=== PATIENT | female | born 1975 | race Caucasian/White ===

== ENCOUNTER 2020-04-15 15:11 | Emergency (ER) | payer MEDICAID, SELFPAY ==
[2020-04-15 15:35] VITALS: BP 151/101; PULSE 90; RESP 14; TEMP 36; O2SAT 96; BMI 37.9
--- NOTE | 2020-04-15 16:10 | W.ED.FEMALGU ---
HPI - Female Genitourinary General: Chief complaint: Vaginal Bleeding Stated complaint: sent by doc Time Seen by Provider: 04/15/20 16:03 History of Present Illness: HPI Narrative: Patient states that she has had vaginal bleeding for the past 7 months. She has seen her PCP for this. She called today to tell her that she was now passing clots. Her PCP told her that she has cervical cancer and needed to come to the emergency department. MD elicited complaint: vaginal bleeding Onset (ago): month(s) Severity: severe Vaginal bleeding: heavy, dark red and clots Exacerbating factors: none Relieving factors: none Treatment prior to arrival: none Review of Systems General: Reports: 10 or more systems reviewed and unremarkable except in HPI and below PFS ED PFSH: Medical History Borderline personality disorder Generalized anxiety disorder Nicotine dependence, cigarettes, uncomplicated Post-traumatic stress disorder, chronic Social History Smoking and tobacco status: current every day smoker cigarettes Smoking risk assessment/counseling performed?: Yes Tobacco counseling given: counseling >3 minutes Physical Exam Const: COMMON NORMALS: no acute distress, healthy appearing and well nourished GENERAL APPEARANCE: cooperative and well developed HENMT: COMMON NORMALS: normocephalic and atraumatic HEAD & SCALP: normal to inspection, normocephalic and atraumatic Eye: GENERAL EYE: appearance normal, both eyes and all related structures Neck/C-Spine: COMMON NORMALS: full ROM, no lymphadenopathy and no meningeal signs GENERAL: Yes normal visual inspection CERVICAL SPINE: Yes cervical ROM normal and Yes normal cervical lordosis Chest: COMMONS NORMALS: normal inspection of the chest and normal palpation of entire chest wall Resp: COMMON NORMALS: normal respiratory effort, clear to auscultation bilaterally and percussion normal AUSCULTATION: clear to auscultation bilaterally PERCUSSION: percussion normal Cardio: COMMON NORMALS: regular rate, regular rhythm, S1 normal heart sound present and S2 normal heart sound present JUGULAR VENOUS DISTENTION: no JVD PALPATION: normal PMI RATE: regular rate RHYTHM: regular rhythm HEART SOUNDS: S1 normal heart sound present and S2 normal heart sound present GI: COMMON NORMALS: Soft to palpation and No hepatosplenomegaly present INSPECTION: Yes normal to inspection PALPATION: Yes Soft to palpation and Yes No hepatosplenomegaly present PERCUSSION: normal to percussion : COMMON NORMALS: Yes no CVA tenderness BLADDER/KIDNEY EXAM: Yes no CVA tenderness Back/Pelvis: COMMON NORMALS: no CVA tenderness, thoracic and lumbar spine normal to inspection and thoraco-lumbar ROM normal Extremity: COMMON NORMALS: normal to inspection, full ROM and capillary refill normal Neuro: MENINGEAL SIGNS: Yes no meningeal signs Skin: COMMON NORMALS: no rashes or lesions noted, no wounds and turgor normal GENERAL SKIN EXAM: no rashes or lesions noted, elasticity normal and turgor normal LESIONS: no lesions RASHES: no rashes TRAUMA: no lacerations or abrasions HAIR: normal NAILS: normal Course ED course: I spoke with Dr. Mendez of gynecological oncology at [facility] in [place]. She will have her office contact the patient tomorrow and arrange for an office appointment and evaluation on Sunday. Vital Signs: Vital signs: Vital Signs Temperature 96.8 F L 04/15/20 15:35 Pulse Rate 90 04/15/20 15:35 Respiratory Rate 14 04/15/20 15:35 Blood Pressure 151/101 04/15/20 15:35 Pulse Oximetry 96 04/15/20 15:35 MDM - Female Lab Data: Labs: Lab Results 04/15/20 04/15/20 04/15/20 Range/Units 16:15 16:15 16:15 WBC 15.2 H (4.0-10.0) 10^3/ uL RBC 4.69 (4.1-5.3) 10^6/u L Hgb 14.0 (11.5-15.3) g/dL Hct 42.9 (37.0-47.0) % MCV 91.5 (81-99) fL MCH 29.9 (28.0-34.0) pg MCHC 32.6 (30.0-36.0) g/dL RDW 14.1 (12.1-15.1) % Plt Count 431 H (130-400) 10^3/c mm MPV 12.4 H (7.4-10.4) fL Neut % (Auto) 68.9 % Lymph % (Auto) 21.1 % [place] % (Auto) 8.4 % Eos % (Auto) 0.9 % Baso % (Auto) 0.3 % Neut # (Auto) 10.44 H (1.8-7.7) 10^3/u L Lymph # (Auto) 3.2 (0.8-4.8) 10^3/u L [place] # (Auto) 1.3 H (0.2-0.9) 10^3/u L Eos # (Auto) 0.1 (0.0-0.8) 10^3/u L Baso # (Auto) 0.1 (0.0-0.1) 10^3/u L Nucleated RBC % (a uto) 0 % Nucleated RBCs # 0.0 /100WBC PT 12.50 (10.5-13.3) SECO NDS INR 0.91 (0.8-1.2) APTT 31.3 (23.9-36.7) SECO NDS Sodium 135 L (136-145) mmol/L Potassium 3.9 (3.5-5.1) mmol/L Chloride 102 (98-107) mmol/L Carbon Dioxide 21 L (22-29) mmol/L Anion Gap 15.9 (5-19) BUN 11 (6-20) mg/dL Creatinine 0.8 (0.5-0.9) mg/dL GFR Calculation 78.7 L (90-130) mL/min Glucose 96 (65-115) mg/dL Calculated Osmolal ity 276 L (285-295) mOsm/k g Calcium 9.8 (8.5-10.5) mg/dL Total Bilirubin 0.2 (0.15-1.2) mg/dL AST 25 (0-32) U/L ALT 23 (0-33) U/L Alkaline Phosphata se 76 (35-105) IU/L Total Protein 7.8 (6.6-8.7) g/dL Albumin 4.6 (3.5-5.2) g/dL Globulin 3.2 (1.3-4.6) g/dL Discharge Plan Discharge Patient Disposition: Xfer Other Clinical Impression: Cervical cancer Qualifiers: Malignant neoplasm of cervix location: overlapping locations Qualified Code(s): C53.8 - Malignant neoplasm of overlapping sites of cervix uteri Condition: Stable Coding Level of Care Code ED Cleaning Validation Consultant for Chg Fwd Exam Comprehensive
[2020-04-15 17:51] LABS: Basophils # 0.1 10^3/uL (0.0-0.1); Basophils % 0.3 %; Eosinophils # 0.1 10^3/uL (0.0-0.8); Eosinophils % 0.9 %; Hematocrit 42.9 % (37.0-47.0); Lymphocytes # 3.2 10^3/uL (0.8-4.8); Lymphocytes % 21.1 %; Mean Corpuscular HGB Conc 32.6 g/dL (30.0-36.0); Mean Corpuscular Hemoglobin 29.9 pg (28.0-34.0); Mean Corpuscular Volume 91.5 fL (81-99); Mean Platelet Volume 12.4 fL (7.4-10.4); Monocytes # 1.3 10^3/uL (0.2-0.9); Monocytes % 8.4 %; Neutrophils # 10.44 10^3/uL (1.8-7.7); Neutrophils % 68.9 %; Nucleated Red Blood Cells % 0 %; Platelet Count 431 10^3/cmm (130-400); Red Blood Count 4.69 10^6/uL (4.1-5.3); Red Cell Distribution Width 14.1 % (12.1-15.1); White Blood Count 15.2 10^3/uL (4.0-10.0)
[2020-04-15 18:10] LABS: Alanine Aminotransferase 23 U/L (0-33); Albumin Level 4.6 g/dL (3.5-5.2); Alkaline Phosphatase 76 IU/L (35-105); Anion Gap 15.9 (5-19); Aspartate Amino Transferase 25 U/L (0-32); Blood Urea Nitrogen 11 mg/dL (6-20); Calcium 9.8 mg/dL (8.5-10.5); Carbon Dioxide 21 mmol/L (22-29); Chloride 102 mmol/L (98-107); Globulin 3.2 g/dL (1.3-4.6); Glomerular Filtration Rate 78.7 mL/min (90-130); Glucose 96 mg/dL (65-115); Osmolality Calculated 276 mOsm/kg (285-295); Potassium 3.9 mmol/L (3.5-5.1); Sodium 135 mmol/L (136-145); Total Bilirubin 0.2 mg/dL (0.15-1.2); Total Protein 7.8 g/dL (6.6-8.7)
[2020-04-15 18:17] LABS: INR 0.91 (0.8-1.2); Partial Thromboplastin Time 31.3 SECONDS (23.9-36.7)
[2020-04-15] MEDS: ondansetron 2 mg/ML SDV 2 mL 4 MG IVP (18:47)
[2020-04-15 19:06] VITALS: BP 154/109; PULSE 72; RESP 18; O2SAT 96
== END 2020-04-15 19:09 | disposition home or self-care (01) ==
PROVIDERS: Family Medicine; Emergency Provider Family Medicine
DX: C53.8 Malignant neoplasm of overlapping sites of cervix uteri (principal); F17.210 Nicotine dependence, cigarettes, uncomplicated
CPT/HCPCS: 12345; 80053; 85025; 85610; 85730; 96374; 96375; 99282; 99285; J2405

== ENCOUNTER → 2020-07-09 07:53 | Outpatient (BNVA) | payer MEDICAID, SELFPAY | PROVIDERS: Visit Provider Nurse Practitioner | DX: F41.1 Generalized anxiety disorder (principal); F43.12 Post-traumatic stress disorder, chronic; F60.3 Borderline personality disorder; F17.210 Nicotine dependence, cigarettes, uncomplicated | CPT/HCPCS: 99214 ==

== ENCOUNTER → 2020-10-13 09:00 | Outpatient (BNVA) | payer MEDICAID, SELFPAY | PROVIDERS: Visit Provider Nurse Practitioner | DX: F43.12 Post-traumatic stress disorder, chronic (principal); F60.3 Borderline personality disorder; F41.1 Generalized anxiety disorder; F17.210 Nicotine dependence, cigarettes, uncomplicated | CPT/HCPCS: 99213 ==

== ENCOUNTER 2020-10-25 12:07 | Outpatient (CLI) | payer MEDICAID, SELFPAY ==
--- NOTE | 2020-10-25 12:24 | CT_ITS ---
WS: [id number] CT CHEST, ABDOMEN, AND PELVIS TECHNIQUE: Contrast-enhanced CT of the chest, abdomen, and pelvis with coronal and sagittal reformatt ed images. CLINICAL INFORMATION: MALIGNANT NEOPLASM OF CERVIX,SOLITARY PULMONARY NODULE COMPARISON: CT 9 24,018 and 3 10,016 DLP: 2694.[address] scans at [facility] use at least one of these dose optimization techniques: automat ed exposure control; mA and/or kV adjustment per patient size (includes targeted exams where dose is matched to clinical indication); or iterative reconstruction. CT CHEST: Noncalcified 6 mm pulmonary nodule left lower lobe unchanged since thousand 18. Tiny noncalcified pul monary nodule right upper lobe is unchanged since thousand 16. No new suspicious pulmonary parenchyma l opacities. No acute pulmonary infiltrates. Lungs well aerated. No consolidation pleural fluid. No mediastinal or hilar lymphadenopathy. No axillary lymphadenopathy. Small esophageal hiatal hernia. CT ABDOMEN AND PELVIS: Diffuse fatty infiltration of the liver. Cholelithiasis. Hepatomegaly. Normal portal vein and splenic vein. Small esophageal hiatal hernia. Adrenal glands are normal. No normal renal parenchymal enhance ment. No hydronephrosis. Mild aortic calcification. Normal caliber abdominal aorta. Normal sigmoid colon. No evidence of high-grade small or large bowel obstruction. No periaortic lymph adenopathy. No inguinal or pelvic lymphadenopathy. Heterogeneous uterine enhancement. Grade 1 anterol isthesis L4 on L5 with chronic spondylolysis. CT/CT chest abd pel w con* IMPRESSION: 1. Stable noncalcified 6 mm pulmonary nodule left lower lobe. 2. Stable tiny noncalcified pulmonary nodule right upper lobe. 3. No mediastinal or hilar lymphadenopathy. 4. Cholelithiasis. 5. Diffuse fatty infiltration of the liver with hepatomegaly. 6. No abdominal or pelvic lymphadenopathy
[2020-10-25] MEDS: iohexol 300 mg/mL 50 mL Btl PO (13:37)
[2020-10-25] MEDS: iohexol 300 mg/mL 100 mL Btl IV (14:03)
== END 2020-10-25 12:08 | disposition home or self-care (01) ==
LOC: RADWPI 12:12
PROVIDERS: Visit Provider Nurse Practitioner Family
DX: C53.9 Malignant neoplasm of cervix uteri, unspecified (principal); Z68.41 Body mass index [BMI] 40.0-44.9, adult; R91.1 Solitary pulmonary nodule; K80.20 Calculus of gallbladder without cholecystitis without obstruction; K76.0 Fatty (change of) liver, not elsewhere classified
CPT/HCPCS: 71260; 74177; Q9967

== ENCOUNTER → 2020-12-02 10:33 | Day surgery (SDC) | payer MEDICAID, SELFPAY ==
[2020-12-02 11:48] VITALS: BP 130/108; PULSE 72; RESP 18; TEMP 36.6; O2SAT 98
== END ==
PROVIDERS: Visit Provider Nurse Practitioner Family
DX: C53.9 Malignant neoplasm of cervix uteri, unspecified (principal)
CPT/HCPCS: 96368

== ENCOUNTER → 2021-01-20 10:03 | Day surgery (SDC) | payer MEDICAID, SELFPAY ==
[2021-01-20 10:59] VITALS: BP 159/95; PULSE 68; RESP 18; TEMP 36.9; O2SAT 98; BMI 43.5
== END ==
PROVIDERS: Visit Provider Nurse Practitioner Family
DX: C53.9 Malignant neoplasm of cervix uteri, unspecified (principal)
CPT/HCPCS: 96368; 96523

== ENCOUNTER → 2021-02-02 08:34 | Outpatient (BNVA) | payer MEDICAID, SELFPAY | PROVIDERS: Visit Provider Nurse Practitioner | DX: F41.1 Generalized anxiety disorder (principal); F60.3 Borderline personality disorder; F43.12 Post-traumatic stress disorder, chronic; F17.210 Nicotine dependence, cigarettes, uncomplicated | CPT/HCPCS: 99214 ==

== ENCOUNTER → 2021-03-14 08:35 | Day surgery (SDC) | payer MEDICAID, SELFPAY ==
[2021-03-14 09:24] VITALS: BP 110/75; PULSE 77; RESP 18; TEMP 36.6; O2SAT 98
--- NOTE | 2021-03-14 09:26 | PC.NURSE ---
Could not access port, 2nd nurse tried and could not. Will have longer needles ordered and pt will come back .
== END ==
PROVIDERS: Visit Provider Nurse Practitioner Family
DX: C53.9 Malignant neoplasm of cervix uteri, unspecified (principal)
CPT/HCPCS: 96368; 96523

== ENCOUNTER → 2021-06-08 07:14 | Outpatient (BNVA) | payer MEDICAID, SELFPAY | PROVIDERS: Visit Provider Nurse Practitioner | DX: F43.12 Post-traumatic stress disorder, chronic (principal); F60.3 Borderline personality disorder; F41.1 Generalized anxiety disorder; F17.210 Nicotine dependence, cigarettes, uncomplicated | CPT/HCPCS: 99214 ==

== ENCOUNTER → 2021-08-01 10:58 | Day surgery (SDC) | payer MEDICAID, SELFPAY ==
[2021-08-01 11:07] VITALS: BP 160/105; PULSE 80; RESP 18; TEMP 36.2; O2SAT 97
[2021-08-01 11:11] VITALS: BMI 38.0
== END ==
PROVIDERS: PCP Nurse Practitioner; Visit Provider Nurse Practitioner Family
DX: C53.9 Malignant neoplasm of cervix uteri, unspecified (principal)
CPT/HCPCS: 96523

== ENCOUNTER → 2021-09-12 10:55 | Day surgery (SDC) | payer MEDICAID, SELFPAY ==
[2021-09-12 11:10] VITALS: BP 130/94; PULSE 70; RESP 18; TEMP 36.3; O2SAT 97; BMI 41.2
== END ==
PROVIDERS: PCP Nurse Practitioner; Visit Provider Nurse Practitioner Family
DX: Z45.2 Encounter for adjustment and management of vascular access device (principal)
CPT/HCPCS: 96523

== ENCOUNTER → 2021-09-20 07:38 | Outpatient (BNVA) | payer MEDICAID, SELFPAY | PROVIDERS: PCP Nurse Practitioner; Visit Provider Nurse Practitioner | DX: F43.12 Post-traumatic stress disorder, chronic (principal); F60.3 Borderline personality disorder; F41.1 Generalized anxiety disorder; F17.210 Nicotine dependence, cigarettes, uncomplicated | CPT/HCPCS: 99214 ==

== ENCOUNTER → 2022-01-03 12:17 | Day surgery (SDC) | payer MEDICAID, SELFPAY ==
[2022-01-03 12:10] VITALS: BP 132/82; PULSE 95; RESP 18; TEMP 36.3; O2SAT 96
--- NOTE | 2022-01-03 12:10 | PC.NURSE ---
Pt to GI lab for port flush. Port to left chest accessed using sterile technique. Good blood return noted. Port flushed per protocol with 20 mL NS and de-accessed. Pt tolerated well.
== END ==
PROVIDERS: PCP Nurse Practitioner; Visit Provider Nurse Practitioner Family
DX: C53.9 Malignant neoplasm of cervix uteri, unspecified (principal)
CPT/HCPCS: 96523

== ENCOUNTER → 2022-01-11 09:54 | Outpatient (BNVA) | payer MEDICAID, SELFPAY | PROVIDERS: PCP Nurse Practitioner; Visit Provider Nurse Practitioner | DX: F43.12 Post-traumatic stress disorder, chronic (principal); F60.3 Borderline personality disorder; F41.1 Generalized anxiety disorder; F17.210 Nicotine dependence, cigarettes, uncomplicated | CPT/HCPCS: 99214 ==

== ENCOUNTER 2022-02-02 20:00 | Outpatient (CLI) | payer MEDICAID, SELFPAY | END 2022-02-02 20:01 | disposition home or self-care (01) | LOC: SLEEP 02-03 07:48 | PROVIDERS: PCP Nurse Practitioner; Visit Provider Nurse Practitioner | DX: R06.83 Snoring (principal); R53.83 Other fatigue; G47.33 Obstructive sleep apnea (adult) (pediatric) | CPT/HCPCS: 95810 ==

== ENCOUNTER 2022-03-08 20:00 | Outpatient (CLI) | payer MEDICAID, SELFPAY | END 2022-03-08 20:01 | disposition home or self-care (01) | LOC: SLEEP 03-09 07:36 | PROVIDERS: PCP Nurse Practitioner; Visit Provider Nurse Practitioner | DX: G47.33 Obstructive sleep apnea (adult) (pediatric) (principal) | CPT/HCPCS: 95811 ==

== ENCOUNTER → 2022-03-10 10:54 | Day surgery (SDC) | payer MEDICAID, SELFPAY ==
[2022-03-10 11:09] VITALS: BP 129/90; PULSE 78; RESP 18; TEMP 36.6; O2SAT 93
== END ==
PROVIDERS: PCP Nurse Practitioner; Visit Provider Nurse Practitioner Family
DX: C53.9 Malignant neoplasm of cervix uteri, unspecified (principal)
CPT/HCPCS: 96523

== ENCOUNTER → 2022-04-14 10:51 | Day surgery (SDC) | payer MEDICAID, SELFPAY ==
[2022-04-14 11:00] VITALS: BP 117/86; PULSE 87; RESP 18; TEMP 36.2; O2SAT 96
== END ==
PROVIDERS: PCP Nurse Practitioner; Visit Provider Nurse Practitioner Family
DX: G47.33 Obstructive sleep apnea (adult) (pediatric) (principal)
CPT/HCPCS: 96523

== ENCOUNTER 2022-06-20 12:38 | Outpatient (CLI) | payer OTHER, SELFPAY ==
--- NOTE | 2022-06-20 13:25 | PFTS_ITS ---
Date of Study:06/20/22 Date of Dictation: MECHANICS: Forced vital capacity (FVC) is normal. Forced expiratory volume in one second (FEV1) is normal. FEV1/FVC is normal. FLOW VOLUME LOOP: Normal. LUNG VOLUMES: Not measured DIFFUSING CAPACITY FOR CARBON MONOXIDE: Mildly reduced. INTERPRETATION: The prebronchodilator spirometry is normal. Lung volumes are not measured. Gas exchange (DLCO) is mildly reduced. MTDD
== END 2022-06-20 12:39 | disposition home or self-care (01) ==
LOC: RT 12:39
PROVIDERS: PCP Nurse Practitioner; Visit Provider Family Medicine
DX: J44.9 Chronic obstructive pulmonary disease, unspecified (principal)
CPT/HCPCS: 94010; 94729

== ENCOUNTER 2023-04-16 20:56 | Emergency (ER) | payer MEDICAID, SELFPAY ==
[2023-04-16 21:06] VITALS: BP 154/110; PULSE 100; RESP 22; TEMP 36.7; O2SAT 97; BMI 42.8
--- NOTE | 2023-04-16 21:18 | CTR_ITS ---
PROCEDURE INFORMATION: Exam: CT Abdomen And Pelvis With Contrast Exam date and time: 04/16/2023 10:36 PM Age: 47 years old Clinical indication: Abdominal pain; Generalized; Prior surgery; Surgery date: 6+ months; Surgery type: Tubal; Additional info: Abd pain TECHNIQUE: Imaging protocol: Computed tomography of the abdomen and pelvis with contrast. Radiation optimization: All CT scans at this facility use at least one of these dose optimization techniques: automated exposure control; mA and/or kV adjustment per patient size (includes targeted exams where dose is matched to clinical indication); or iterative reconstruction. Contrast material: OMNI 350; Contrast volume: 100 ml; Contrast route: INTRAVENOUS (IV); REPORTING DATA: Count of CT and Cardiac NM exams in prior 12 months: This patient has received 0 known CTs and 0 known cardiac nuclear medicine studies in the 12 months prior to the current study. COMPARISON: CT chest abdpel w/*[id number] 10/25/2020 1:59 PM RADIATION DOSE METRICS: Total DLP (mGy-cm): 1209 FINDINGS: Lungs: Stable benign 6 mm left lower lobe nodule. Liver: Diffuse geographic fatty infiltration of the liver. Hepatomegaly. Gallbladder and bile ducts: Multiple calcified stones in the gallbladder with a 2.1 cm stone in the fundus. No visible wall thickening. Bile ducts are normal. Pancreas: Normal. No ductal dilation. Spleen: Normal. No splenomegaly. Adrenal glands: Approximate 2.0 cm nodule in the left adrenal body, Hounsfield units less than 10, consistent with a benign adenoma. The right adrenal is normal. Kidneys and ureters: Normal. No hydronephrosis. Stomach and bowel: Unremarkable. No obstruction. No mucosal thickening. Appendix: The appendix is visualized and is normal. Intraperitoneal space: Unremarkable. No free air. No significant fluid collection. Vasculature: Arterial calcifications. No aneurysm. Lymph nodes: Unremarkable. No enlarged lymph nodes. Urinary bladder: Unremarkable as visualized. Reproductive: Unremarkable as visualized. Bones/joints: Chronic bilateral L4 pars defects with grade 1 anterolisthesis. No acute fracture. Soft tissues: Unremarkable. CT/CT abdomen pelvis w con* [id number] IMPRESSION: 1. No acute findings. 2. Cholelithiasis. 3. Enlarged liver with diffuse fatty infiltration.
--- NOTE | 2023-04-16 21:21 | ED_ITS ---
HPI - Abdominal Pain General: Chief Complaint: Abdominal Pain Stated Complaint: abdomen pain Time Seen by Provider: 04/16/23 21:13 Source: patient Mode of arrival: ambulatory Limitations: no limitations History of Present Illness: 47-year-old female states that she been having abdominal pain along with nausea and vomiting throughout the day. She states that her pain is sharp in nature in the lower abdomen. She states that she had a history of ovarian and cervical cancer she is in remission did not have any surgeries states that she had been through menopause has not had a menstruation in years and did have bleeding this morning as well. Denies any worsening proving factors. Associated Symptoms: Reports nausea and vomiting; Denies chills, diarrhea, dysuria and fever(s) Review of Systems Const: Denies: fever(s), chills, body aches or change in appetite Eyes: Denies: eye discomfort ENMT: Denies: throat pain or dental pain Card: Denies: chest pain Resp: Denies: dyspnea GI: Reports: abdominal pain, nausea and vomiting; Denies: diarrhea : Reports: vaginal bleeding; Denies: dysuria Musc: Denies: neck pain or back pain Skin/Breast: Denies: rash Neuro: Denies: headache(s) Brady/Lymph: Denies: easy bruising All/Imm: Denies: urticaria PFSH ED PFSH: Medical History Borderline personality disorder Generalized anxiety disorder Nicotine dependence, cigarettes, uncomplicated Post-traumatic stress disorder, chronic Psychiatric care Social History Smoking and tobacco status: former smoker Quit status (tobacco): has quit using tobacco Smoking risk assessment/counseling performed?: Yes Tobacco counseling given: counseling >3 minutes Current gender identity: Female Physical Exam Const: COMMON NORMALS: no acute distress, patient oriented x3 and healthy appearing HENMT: COMMON NORMALS: normocephalic and atraumatic HEAD & SCALP: normocephalic and atraumatic Neck/C-Spine: COMMON NORMALS: full ROM and supple Chest: COMMONS NORMALS: normal inspection of the chest and normal palpation of entire chest wall Resp: COMMON NORMALS: normal respiratory effort, No retractions, No use of accessory muscles and clear to auscultation bilaterally AUSCULTATION: clear to auscultation bilaterally Cardio: COMMON NORMALS: regular rate, regular rhythm and No murmurs present (Cardio) RATE: regular rate RHYTHM: regular rhythm GI: COMMON NORMALS: Normal to inspection, nondistended, normoactive bowel sounds present, Soft to palpation, non-tender and no masses PALPATION: Yes Soft to palpation Extremity: COMMON NORMALS: normal to inspection and full ROM Neuro: COMMON NORMALS: patient oriented x3, moves all extremities and no focal motor deficits Psych: COMMON NORMALS: mental status grossly normal, Normal thought process present and cooperative THOUGHT PROCESS: Normal thought process present Skin: COMMON NORMALS: no rashes or lesions noted and no wounds GENERAL SKIN EXAM: no rashes or lesions noted Course Vital Signs: Vital signs: Vital Signs Temperature 98.1 F 04/16/23 21:06 Pulse Rate 89 04/16/23 23:16 Respiratory Rate 18 04/16/23 23:16 Blood Pressure 146/102 04/16/23 23:16 Pulse Oximetry 97 04/16/23 23:16 Oxygen Delivery Me thod Room Air 04/16/23 23:16 MDM - Abdominal Pain Medical Decision Making Patient presents here with vomiting all some abdominal pain she feels much improved here abdominal exam discharge is benign she did have a slightly elevated white count is likely due to reactive from vomiting CT scan showed no acute findings did show some gallstones she had no large amounts of vaginal bleeding here she is stable for discharge she is to follow-up with her [facility] can return if worsening. Medical Records I reviewed the patient's medical records. Lab Data I reviewed the patient's lab results. 04/16/23 21:36 04/16/23 21:36 Labs/Radiology: Radiology Impressions Abdomen/Pelvis CT 04/16/23 21:18 IMPRESSION: 1. No acute findings. 2. Cholelithiasis. 3. Enlarged liver with diffuse fatty infiltration. Laboratory Results WBC 15.6 10^3/uL (4.0-10.0) H 04/16/23 21:36 RBC 5.21 10^6/uL (4.1-5.3) 04/16/23 21:36 Hgb 16.2 g/dL (11.5-15.3) H 04/16/23 21:36 Hct 48.0 % (37.0-47.0) H 04/16/23 21:36 MCV 92.1 fl (81-99) 04/16/23 21:36 MCH 31.1 pg (28.0-34.0) 04/16/23 21:36 MCHC 33.8 g/dL (30.0-36.0) 04/16/23 21:36 RDW 14.2 % (12.1-15.1) 04/16/23 21:36 Plt Count 385 10^3/cmm (130-400) 04/16/23 21:36 MPV 11.8 fL (7.4-10.4) H 04/16/23 21:36 Neut % (Auto) 75.2 % 04/16/23 21:36 Lymph % (Auto) 15.0 % 04/16/23 21:36 [place] % (Auto) 7.4 % 04/16/23 21:36 Eos % (Auto) 1.4 % 04/16/23 21:36 Baso % (Auto) 0.4 % 04/16/23 21:36 Neut # (Auto) 11.76 10^3/uL (1.8-7.7) H 04/16/23 21:36 Lymph # (Auto) 2.3 10^3/uL (0.8-4.8) 04/16/23 21:36 [place] # (Auto) 1.2 10^3/uL (0.2-0.9) H 04/16/23 21:36 Eos # (Auto) 0.2 10^3/uL (0.0-0.8) 04/16/23 21:36 Baso # (Auto) 0.1 10^3/uL (0.0-0.1) 04/16/23 21:36 Nucleated RBC % (auto) 0 % 04/16/23 21:36 Nucleated RBCs # 0.0 /100WBC 04/16/23 21:36 Sodium 136 mmol/L (136-145) 04/16/23 21:36 Potassium 3.6 mmol/L (3.5-5.1) 04/16/23 21:36 Chloride 99 mmol/L (98-107) 04/16/23 21:36 Carbon Dioxide 20 mmol/L (22-29) L 04/16/23 21:36 Anion Gap 20.6 (5-19) H 04/16/23 21:36 BUN 9 mg/dL (6-20) 04/16/23 21:36 Creatinine 0.8 mg/dL (0.5-0.9) 04/16/23 21:36 GFR Calculation 77.6 mL/min (90-130) L 04/16/23 21:36 Glucose 154 mg/dL (65-115) H 04/16/23 21:36 Calculated Osmolality 284 mOsm/kg (285-295) L 04/16/23 21:36 Calcium 9.9 mg/dL (8.5-10.5) 04/16/23 21:36 Total Bilirubin 0.4 mg/dL (0.15-1.2) 04/16/23 21:36 AST 36 U/L (0-32) H 04/16/23 21:36 ALT 33 U/L (0-33) 04/16/23 21:36 Alkaline Phosphatase 123 U/L (35-105) H 04/16/23 21:36 Total Protein 8.4 g/dL (6.6-8.7) 04/16/23 21:36 Albumin 4.6 g/dL (3.5-5.2) 04/16/23 21:36 Globulin 3.8 g/dL (1.3-4.6) 04/16/23 21:36 Lipase 31 U/L (13-60) 04/16/23 21:36 HCG, Qual Negative (Negative) 04/16/23 21:36 Urine Color Yellow (Yellow) 04/16/23 23:13 Urine Appearance Hazy (CLEAR) A 04/16/23 23:13 Urine pH 5 (5-7) 04/16/23 23:13 Ur Specific [place] 1.020 (1.005-1.030) 04/16/23 23:13 Urine Protein Neg (Negative) 04/16/23 23:13 Urine Glucose (UA) Norm (Normal) 04/16/23 23:13 Urine Ketones Negative (Negative) 04/16/23 23:13 Urine Blood 3+ (Negative) H 04/16/23 23:13 Urine Nitrate Negative (Negative) 04/16/23 23:13 Urine Bilirubin 1+ (Negative) H 04/16/23 23:13 Urine Urobilinogen 1 mg/dL (Negative) H 04/16/23 23:13 Ur Leukocyte Esterase Trace (Negative) H 04/16/23 23:13 Urine RBC 5-10 /hpf (0-2) H 04/16/23 23:13 Urine WBC 0-4 /hpf (0-5) H 04/16/23 23:13 Ur Squamous Epith Cells 15-25 /hpf (0-5) H 04/16/23 23:13 Calcium Oxalate Crystal 15-25 /hpf H 04/16/23 23:13 Amorphous Sediment Not Reportable 04/16/23 23:13 Urine Bacteria 1+ /hpf (NONE) H 04/16/23 23:13 Urine Mucus 3+ /hpf 04/16/23 23:13 Discharge Plan Discharge Patient Disposition: Home Clinical Impression: Abdominal pain, Vomiting Condition: Stable Prescriptions: New ondansetron 4 mg tablet,disintegrating 4 mg PO Q6H PRN (Reason: nausea and vomiting) Qty: 14 0RF hydrocodone-acetaminophen 5-325 mg tablet 1 tab PO Q6H PRN (Reason: pain) Qty: 14 0RF No Action metoprolol tartrate 50 mg tablet 50 mg PO BID (DME) oxygen-air delivery systems Device See Rx Instructions .Route Rx Instructions: As directed fluticasone propion-salmeterol [Advair Diskus] 250-50 mcg/dose blister with device 1 inh inhalation BID cetirizine [Zyrtec] 10 mg tablet 10 mg PO DAILY PRN estradiol 2 mg tablet 2 mg PO DAILY famotidine [Acid Truck Terminal Manager (famotidine)] 20 mg tablet 20 mg PO DAILY fluticasone propionate [Allergy Relief (fluticasone)] 50 mcg/actuation spra y,suspension 1 spray intranasal DAILY Rx Instructions: administer into each nostril Trulicity 0.75 mg/0.5 mL pen injector SUBCUT trazodone 150 mg tablet See Rx Instructions .ROUTE .COMPLEX Qty: 30 2RF Dose Instruction: TAKE ONE TABLET BY MOUTH AT BEDTIME Rx Instructions: TAKE ONE TABLET BY MOUTH AT BEDTIME paroxetine HCl 40 mg tablet 60 mg PO DAILY Qty: 45 2RF potassium gluconate 595 mg (99 mg) Tablet 595 mg PO DAILY ibuprofen 200 mg Tablet 200 mg PO Q6H PRN (Reason: Pain) Discharge Orders: Discharge ED (Routine); Ordered 04/16/23 Ordered By: Kaylynn Bermudez Referrals: Jeovanny Thao, UTILIZATION REVIEWER [Primary Care Provider] - 1-3 days Discharge Diet: Advance as tolerated Discharge Activity: Resume usual activity Patient Instructions: Acute Nausea and Vomiting (ED), Abdominal Pain (ED) Coding Level of Care Code ED Environmental Change Analyst for Demar Black
[2023-04-16] MEDS: metoclopramide 5 mg/mL SDV 2 mL 10 MG IVP (21:30)
[2023-04-16] MEDS: diphenhydrAMINE 50 mg/mL SDV 1mL IVP (21:30)
[2023-04-16] MEDS: sodium chloride 0.9% 1,000 ML 999 ML IV (21:31)
[2023-04-16 21:43] VITALS: BP 160/127; PULSE 99; RESP 20; O2SAT 96
[2023-04-16 22:00] LABS: Basophils # 0.1 10^3/uL (0.0-0.1); Basophils % 0.4 %; Eosinophils # 0.2 10^3/uL (0.0-0.8); Eosinophils % 1.4 %; Hemoglobin 16.2 g/dL (11.5-15.3); Lymphocytes # 2.3 10^3/uL (0.8-4.8); Mean Corpuscular HGB Conc 33.8 g/dL (30.0-36.0); Mean Corpuscular Hemoglobin 31.1 pg (28.0-34.0); Mean Corpuscular Volume 92.1 fl (81-99); Mean Platelet Volume 11.8 fL (7.4-10.4); Monocytes # 1.2 10^3/uL (0.2-0.9); Monocytes % 7.4 %; Neutrophils # 11.76 10^3/uL (1.8-7.7); Neutrophils % 75.2 %; Nucleated Red Blood Cells % 0 %; Platelet Count 385 10^3/cmm (130-400); Red Blood Count 5.21 10^6/uL (4.1-5.3); Red Cell Distribution Width 14.2 % (12.1-15.1); White Blood Count 15.6 10^3/uL (4.0-10.0)
[2023-04-16 22:18] LABS: HCG, Serum Qual Negative (Negative)
[2023-04-16 22:23] LABS: Alanine Aminotransferase 33 U/L (0-33); Albumin Level 4.6 g/dL (3.5-5.2); Alkaline Phosphatase 123 U/L (35-105); Anion Gap 20.6 (5-19); Aspartate Amino Transferase 36 U/L (0-32); Blood Urea Nitrogen 9 mg/dL (6-20); Calcium 9.9 mg/dL (8.5-10.5); Carbon Dioxide 20 mmol/L (22-29); Chloride 99 mmol/L (98-107); Globulin 3.8 g/dL (1.3-4.6); Glomerular Filtration Rate 77.6 mL/min (90-130); Glucose 154 mg/dL (65-115); Lipase 31 U/L (13-60); Osmolality Calculated 284 mOsm/kg (285-295); Potassium 3.6 mmol/L (3.5-5.1); Sodium 136 mmol/L (136-145); Total Bilirubin 0.4 mg/dL (0.15-1.2); Total Protein 8.4 g/dL (6.6-8.7)
[2023-04-16] MEDS: iohexol 350 mg/mL 500 mL Btl (per mL) IV (22:39)
[2023-04-16 23:16] VITALS: BP 146/102; PULSE 89; RESP 18; O2SAT 97
[2023-04-16 23:34] LABS: Add Urine Microscopic? YES; Bilirubin Urine 1+ (Negative); Blood Urine 3+ (Negative); Glucose Urine UA Norm (Normal); Ketones Urine Negative (Negative); Leukocyte Esterase Urine Trace (Negative); Nitrate Urine Negative (Negative); Protein Urine Neg (Negative); Urine Appearance Hazy (CLEAR); Urine Color Yellow (Yellow); Urobilinogen Urine 1 mg/dL (Negative); pH Urine 5 (5-7)
[2023-04-16 23:35] LABS: Add Urine Culture? No; Bacteria Urine 1+ /hpf; Calcium Oxalate Crystals Urine 15-25 /hpf; Mucus Urine 3+ /hpf; Squamous Epithelial Cell Urine 15-25 /hpf (0-5); WBC Urine 0-4 /hpf (0-5)
[2023-04-17 00:07] VITALS: BP 161/118; PULSE 87; RESP 18; O2SAT 97
[2023-04-17 00:09] VITALS: BP 161/118; PULSE 87; RESP 18; O2SAT 97
== END 2023-04-17 00:16 | disposition home or self-care (01) ==
PROVIDERS: Emergency Provider Emergency Medicine; PCP Nurse Practitioner
DX: R10.30 Lower abdominal pain, unspecified (principal); R11.10 Vomiting, unspecified; Z79.85 Long-term (current) use of injectable non-insulin antidiabetic drugs; Z87.891 Personal history of nicotine dependence
CPT/HCPCS: 74177; 80053; 81001; 83690; 84703; 85025; 96361; 96374; 96375; 99285; J1200; J2765; J7030; Q9967

== ENCOUNTER 2023-05-11 16:39 | Outpatient (CLI) | payer MEDICAID, SELFPAY ==
--- NOTE | 2023-05-11 16:52 | CT_ITS ---
WS: [id number] CT CHEST, ABDOMEN AND PELVIS WITH CONTRAST HISTORY: MALIGNANT NEOPLASM OF CERVIX and uterus. Vaginal bleeding. TECHNIQUE: Contiguous 5 mm axial imaging performed through the chest, abdomen and pelvis with IV cont rast, oral contrast has not been provided. Coronal and sagittal reformats chest. Coronal and sagittal reformats through the abdomen and pelvis. All CT scans at [facility] use at least one of the se dose optimization techniques: automated exposure control; mA and/or kV adjustment per patient size (includes targeted exams where dose is matched to clinical indication); or iterative reconstruction. CONTRAST: Omnipaque 350; 100 mL IV. DLP: 1892.58 mGy.cm COMPARISON: 04/16/2023, 10/25/[address]: No interval change in the noncalcified bilateral pulmonary nodules. Some of these nodules a re less than 3 mm. There are additional 3 mm nodules in the RIGHT upper lobe and a 5 mm nodule at the LEFT lung base. No new or increasing nodules. No pneumonia. Normal size pulmonary artery. Normal aor ta. No mediastinal or hilar adenopathy. Small hiatal hernia. Abdomen CT: Marked diffuse hepatic steatosis liver is enlarged extending 20 cm in length. Cholelithia sis without acute cholecystitis. Normal pancreas and spleen. Normal RIGHT adrenal gland. LEFT adrenal nodule 2.0 cm is slightly more prominent as compared to 2018. There are a few mild areas of cortical thinning involving the RIGHT kidney. No renal mass or obstruction. Mild atherosclerosis aorta. No ascites or adenopathy. Normal stomach. No small bowel obstruction. Normal appendix. No colon obstr uction. Pelvic CT: No free fluid in the pelvis. Uterus is present and normal size. No adnexal masses. No cooper opathy. L4 pars defects with 6 mm anterolisthesis. Sclerotic changes involving the femoral heads. Thi s may represent early osteonecrosis. Similar to prior studies. CT/CT chest abdpel w/*[id number] IMPRESSION: 1. No ascites or adenopathy throughout the chest, abdomen or pelvis. 2. Marked hepatic steatosis and hepatomegaly. 3. Cholelithiasis without acute cholecystitis. 4. Pulmonary nodules are subcentimeter and stable since 10/25/2020. 5. No pelvic masses. Uterus remains present. 6. Stable LEFT adrenal nodule.
[2023-05-11] MEDS: iohexol 350 mg/mL 500 mL Btl (per mL) IV (17:14)
== END 2023-05-11 16:40 | disposition home or self-care (01) ==
LOC: RAD 16:41
PROVIDERS: PCP Nurse Practitioner; Visit Provider Nurse Practitioner Family
DX: C53.9 Malignant neoplasm of cervix uteri, unspecified (principal); N93.9 Abnormal uterine and vaginal bleeding, unspecified; K76.0 Fatty (change of) liver, not elsewhere classified; R16.0 Hepatomegaly, not elsewhere classified; K80.20 Calculus of gallbladder without cholecystitis without obstruction; R91.8 Other nonspecific abnormal finding of lung field; E27.9 Disorder of adrenal gland, unspecified
CPT/HCPCS: 71260; 74177; Q9967

== ENCOUNTER → 2023-06-27 09:59 | Outpatient (BNVA) | payer MEDICAID, OTHER, SELFPAY | PROVIDERS: PCP Nurse Practitioner; Referring Provider Nurse Practitioner; Visit Provider Psychiatry & Neurology Neurology | DX: G45.9 Transient cerebral ischemic attack, unspecified (principal) | CPT/HCPCS: 99203 ==

== ENCOUNTER 2023-07-12 12:18 | Emergency (ER) | payer MEDICAID, SELFPAY ==
[2023-07-12 12:28] VITALS: BP 150/108; PULSE 96; RESP 15; TEMP 36.7; O2SAT 98
--- NOTE | 2023-07-12 13:22 | CT_ITS ---
WS: [id number] CT HEAD TECHNIQUE: Noncontrast CT of the head obtained from the skullbase to the vertex. CLINICAL INFORMATION: persistent migraine headache, recent CVA COMPARISON: CT 2016 DLP: 1075.[address] scans at [facility] use at least one of these dose optimization techniques: automated e xposure control; mA and/or kV adjustment per patient size (includes targeted exams where dose is matc hed to clinical indication); or iterative reconstruction. FINDINGS: No evidence of intracranial hemorrhage or mass effect. Ventricular system and basal cisterns are poole nt. No extra-axial fluid collections. No evidence of mass or mass effect. Normal kenney-white different iation. Paranasal sinuses and mastoid air cells are well aerated. .Normal visualized soft tissues. IMPRESSION: 1. No evidence of intracranial hemorrhage or mass effect. 2. No acute intracranial findings.
--- NOTE | 2023-07-12 13:23 | W.ED.HA ---
HPI - Headache General: Chief Complaint: Headache Stated Complaint: headache Time Seen by Provider: 07/12/23 12:45 Source: patient Mode of arrival: ambulatory Limitations: no limitations History of Present Illness: This 47-year-old female with a history of CVA and migraine headaches, presents to the ER with migraine headache that started on Sunday (4 days ago). There is associated nausea and vomiting but no fever. Patient denies diarrhea, chest pain, shortness of breath or any other pertinent systemic symptoms. She has been trying [id number] Tylenol which has not been helpful. She notes that since having her CVA in May 2023, her migraine headaches have been more frequent and more severe. Associated symptoms: Reports nausea and vomiting; Deny chest pain or lightheadedness Review of Systems Const: Denies: chills, body aches or change in appetite Eyes: Denies: change in vision or eye discharge ENMT: Denies: throat pain, dental pain or nasal discharge Card: Denies: chest pain or lightheadedness GI: Reports: nausea and vomiting : Denies: dysuria Musc: Denies: neck pain or back pain Neuro: Reports: headache(s) and weakness in extremities (left side due to CVA) Psych: Denies: depression Brady/Lymph: Denies: easy bruising All/Imm: Denies: urticaria, tongue swelling or facial swelling PFSH ED PFSH: Medical History Borderline personality disorder Generalized anxiety disorder Nicotine dependence, cigarettes, uncomplicated Post-traumatic stress disorder, chronic Psychiatric care Social History (Updated 06/27/23 @ 10:23 by Bree Corona) Smoking and tobacco status: current some day smoker Quit status (tobacco): has quit using tobacco Smoking risk assessment/counseling performed?: Yes Tobacco counseling given: counseling >3 minutes Alcohol intake: unknown Current gender identity: Female Physical Exam Const: COMMON NORMALS: no acute distress, patient oriented x3, no limitations and alert HENMT: COMMON NORMALS: normocephalic HEAD & SCALP: normocephalic Eye: COMMON NORMALS: EOMs intact bilaterally Neck/C-Spine: COMMON NORMALS: full ROM and supple Chest: COMMONS NORMALS: normal inspection of the chest Resp: COMMON NORMALS: normal respiratory effort, No retractions, No use of accessory muscles and clear to auscultation bilaterally AUSCULTATION: clear to auscultation bilaterally Cardio: COMMON NORMALS: regular rate, regular rhythm and No murmurs present (Cardio) RATE: regular rate RHYTHM: regular rhythm GI: COMMON NORMALS: Normal to inspection, nondistended, normoactive bowel sounds present and non-tender : COMMON NORMALS: Yes no CVA tenderness BLADDER/KIDNEY EXAM: Yes no CVA tenderness Back/Pelvis: COMMON NORMALS: no CVA tenderness and no thoracic nor lumbar tenderness Extremity: GENERAL: Yes normal exam except as noted Neuro: COMMON NORMALS: patient oriented x3 and no focal motor deficits SENSORIUM/ORIENTATION: Yes alert Psych: COMMON NORMALS: mental status grossly normal and cooperative Course Vital Signs: Vital signs: Vital Signs Temperature 98.0 F 07/12/23 12:28 Pulse Rate 96 07/12/23 12:28 Respiratory Rate 15 07/12/23 12:28 Blood Pressure 150/108 07/12/23 12:28 Pulse Oximetry 98 07/12/23 12:28 Oxygen Delivery Me thod Room Air 07/12/23 12:28 MDM - Headache Medical Decision Making Medical decision making: Patient presents with headache that started few days ago. She describes this as her usual migraine but it has not responded to [id number] Tylenol. CT brain was obtained given her recent history of CVA. It is negative for any acute intracranial process. After receiving migraine cocktail, headache considerably improved. Patient will be treated as outpatient and was advised to follow-up with her primary care provider for reevaluation. Reasons to return were discussed. Lab Data 07/12/23 13:40 07/12/23 13:40 Laboratory Results WBC 13.53 10^3/uL (3.29-11.43) H 07/12/23 13:40 RBC 4.92 10^6/uL (3.85-5.65) 07/12/23 13:40 Hgb 15.40 g/dL (11.27-16.99) 07/12/23 13:40 Hct 46.3 % (36-47) 07/12/23 13:40 MCV 94.1 fl (85-98) 07/12/23 13:40 MCH 31.3 pg (27-33) 07/12/23 13:40 MCHC 33.3 g/dL (30-55) 07/12/23 13:40 RDW 13.7 % (12.1-15.1) 07/12/23 13:40 Plt Count 332 10^3/cmm (157-399) 07/12/23 13:40 MPV 11.3 fL (7.4-10.4) H 07/12/23 13:40 Neut % (Auto) 78.7 % 07/12/23 13:40 Lymph % (Auto) 12.3 % 07/12/23 13:40 [place] % (Auto) 6.9 % 07/12/23 13:40 Eos % (Auto) 1.1 % 07/12/23 13:40 Baso % (Auto) 0.3 % 07/12/23 13:40 Neut # (Auto) 10.65 10^3/uL (1.8-7.7) H 07/12/23 13:40 Lymph # (Auto) 1.7 10^3/uL (0.8-4.8) 07/12/23 13:40 [place] # (Auto) 0.9 10^3/uL (0.2-0.9) 07/12/23 13:40 Eos # (Auto) 0.2 10^3/uL (0.0-0.8) 07/12/23 13:40 Baso # (Auto) 0.0 10^3/uL (0.0-0.1) 07/12/23 13:40 Nucleated RBC % (auto) 0 % 07/12/23 13:40 Nucleated RBCs # 0.0 /100WBC 07/12/23 13:40 Sodium 139 mmol/L (136-145) 07/12/23 13:40 Potassium 4.4 mmol/L (3.5-5.1) 07/12/23 13:40 Chloride 101 mmol/L (98-107) 07/12/23 13:40 Carbon Dioxide 27 mmol/L (22-29) 07/12/23 13:40 Anion Gap 15.4 (5-19) 07/12/23 13:40 BUN 7 mg/dL (6-20) 07/12/23 13:40 Creatinine 0.7 mg/dL (0.5-0.9) 07/12/23 13:40 GFR Calculation 90.5 mL/min (90-130) 07/12/23 13:40 Glucose 88 mg/dL (65-115) 07/12/23 13:40 Calculated Osmolality 285 mOsm/kg (285-295) 07/12/23 13:40 Calcium 9.6 mg/dL (8.5-10.5) 07/12/23 13:40 Total Bilirubin 0.2 mg/dL (0.15-1.2) 07/12/23 13:40 AST 20 U/L (0-32) 07/12/23 13:40 ALT 18 U/L (0-33) 07/12/23 13:40 Alkaline Phosphatase 100 U/L (35-105) 07/12/23 13:40 Total Protein 7.0 g/dL (6.6-8.7) 07/12/23 13:40 Albumin 4.4 g/dL (3.5-5.2) 07/12/23 13:40 Globulin 2.6 g/dL (1.3-4.6) 07/12/23 13:40 All radiology interpretation(s) finalized by discharge Discharge Plan Discharge Patient Disposition: Home Clinical Impression: Migraine Condition: Stable Prescriptions: New Imitrex 25 mg tablet See Rx Instructions PO .COMPLEX Qty: 20 0RF Rx Instructions: take 1 tab at onset of headache; if no relief may repeat 1 tab after at least 2 hrs; max = 4 tabs/24 hr Fioricet 50-300-40 mg capsule 1 cap PO Q6H PRN (Reason: headache) Qty: 20 0RF No Action (DME) oxygen-air delivery systems Device See Rx Instructions .Route Rx Instructions: As directed fluticasone propion-salmeterol [Advair Diskus] 250-50 mcg/dose blister with device 1 inh inhalation BID cetirizine [Zyrtec] 10 mg tablet 10 mg PO DAILY PRN (Reason: Allergic Symptoms) famotidine [Acid Failure Analysis Engineer (famotidine)] 20 mg tablet 20 mg PO DAILY PRN (Reason: Acid Reflux) Trulicity 0.75 mg/0.5 mL pen injector 0.75 mg SUBCUT Q7D Rx Instructions: ON SUNDAY aspirin 81 mg tablet,delayed release (DR/EC) 81 mg PO QPM trazodone 150 mg tablet 150 mg PO BEDTIME potassium gluconate 595 mg (99 mg) Tablet 595 mg PO QPM ondansetron 4 mg tablet,disintegrating 4 mg PO Q6H PRN (Reason: nausea and vomiting) Qty: 14 0RF metoprolol succinate 50 mg tablet extended release 24 hr 50 mg PO BID duloxetine 30 mg capsule,delayed release(DR/EC) 30 mg PO QAM buspirone 7.5 mg tablet 7.5 mg PO BID Discharge Orders: Discharge ED (Routine); Ordered 07/12/23 Ordered By: Marilyn Dial Referrals: Jeovanny Thao FNP [Primary Care Provider] - Discharge Diet: Usual diet Discharge Activity: Resume usual activity Patient Instructions: Opioid Safety, Pain Management Activity Restrictions/Additional Instructions: Rest in a quiet dark room. Maintain adequate fluid intake. Take Imitrex and Fioricet as prescribed. Follow-up with your primary care provider in 3 to 5 days for reevaluation. Return if you develop any new or worsening symptoms. 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
[2023-07-12 13:51] LABS: Basophils % 0.3 %; Eosinophils # 0.2 10^3/uL (0.0-0.8); Eosinophils % 1.1 %; Hematocrit 46.3 % (36-47); Lymphocytes # 1.7 10^3/uL (0.8-4.8); Lymphocytes % 12.3 %; Mean Corpuscular HGB Conc 33.3 g/dL (30-55); Mean Corpuscular Hemoglobin 31.3 pg (27-33); Mean Corpuscular Volume 94.1 fl (85-98); Mean Platelet Volume 11.3 fL (7.4-10.4); Monocytes # 0.9 10^3/uL (0.2-0.9); Monocytes % 6.9 %; Neutrophils # 10.65 10^3/uL (1.8-7.7); Neutrophils % 78.7 %; Nucleated Red Blood Cells % 0 %; Platelet Count 332 10^3/cmm (157-399); Red Blood Count 4.92 10^6/uL (3.85-5.65); Red Cell Distribution Width 13.7 % (12.1-15.1); White Blood Count 13.53 10^3/uL (3.29-11.43)
[2023-07-12] MEDS: sodium chloride 0.9% 1,000 ML 999 ML IV (13:59)
[2023-07-12] MEDS: ketorolac 30 mg/mL INJ 15 MG IVP (14:01)
[2023-07-12] MEDS: diphenhydrAMINE 50 mg/mL SDV 1mL IVP (14:02)
[2023-07-12] MEDS: metoclopramide 5 mg/mL SDV 2 mL 10 MG IVP (14:03)
[2023-07-12] MEDS: SUMAtriptan 6 mg/0.5 mL SDV SUBCUT (14:04)
[2023-07-12 14:23] LABS: Alanine Aminotransferase 18 U/L (0-33); Albumin Level 4.4 g/dL (3.5-5.2); Alkaline Phosphatase 100 U/L (35-105); Anion Gap 15.4 (5-19); Aspartate Amino Transferase 20 U/L (0-32); Blood Urea Nitrogen 7 mg/dL (6-20); Calcium 9.6 mg/dL (8.5-10.5); Carbon Dioxide 27 mmol/L (22-29); Chloride 101 mmol/L (98-107); Creatinine Clr Calc Pharmacy 148.8126; Globulin 2.6 g/dL (1.3-4.6); Glomerular Filtration Rate 90.5 mL/min (90-130); Glucose 88 mg/dL (65-115); Osmolality Calculated 285 mOsm/kg (285-295); Potassium 4.4 mmol/L (3.5-5.1); Sodium 139 mmol/L (136-145); Total Bilirubin 0.2 mg/dL (0.15-1.2)
== END 2023-07-12 15:46 | disposition home or self-care (01) ==
PROVIDERS: Emergency Provider Family Medicine; PCP Nurse Practitioner
DX: G43.909 Migraine, unspecified, not intractable, without status migrainosus (principal); Z79.82 Long term (current) use of aspirin; Z79.85 Long-term (current) use of injectable non-insulin antidiabetic drugs; F17.210 Nicotine dependence, cigarettes, uncomplicated
CPT/HCPCS: 70450; 80053; 85025; 96361; 96372; 96374; 96375; 99285; J1200; J1885; J2765; J3030; J7030

== ENCOUNTER → 2024-04-08 10:00 | Outpatient (BNVA) | payer MEDICAID, SELFPAY | PROVIDERS: PCP Nurse Practitioner; Visit Provider Internal Medicine Rheumatology | DX: M13.80 Other specified arthritis, unspecified site (principal); E11.8 Type 2 diabetes mellitus with unspecified complications; Z79.899 Other long term (current) drug therapy; Z11.1 Encounter for screening for respiratory tuberculosis; Z11.59 Encounter for screening for other viral diseases; Z71.85 Encounter for immunization safety counseling; F17.290 Nicotine dependence, other tobacco product, uncomplicated | CPT/HCPCS: 36415; 73130; 73562; 73630; 80076; 82306; 82565; 85025; 85651; 86038; 86140; 86200; 86431; 86480; 86704; 86803; 86812; 87340; 99204 ==

== ENCOUNTER → 2024-08-12 13:21 | Outpatient (BNVA) | payer MEDICAID, SELFPAY | PROVIDERS: PCP Nurse Practitioner; Visit Provider Internal Medicine Rheumatology | DX: Z79.899 Other long term (current) drug therapy (principal); M19.90 Unspecified osteoarthritis, unspecified site; Z71.85 Encounter for immunization safety counseling; M06.00 Rheumatoid arthritis without rheumatoid factor, unspecified site; E11.9 Type 2 diabetes mellitus without complications | CPT/HCPCS: 36415; 82565; 85025; 85651; 86140; 99214 ==

== ENCOUNTER 2024-11-06 13:33 | Emergency (ER) | payer MEDICAID, SELFPAY ==
[2024-11-06] VITALS (7 sets, daily range): BP systolic 107–145; BP diastolic 83–99; PULSE 77–94; RESP 18–19; TEMP 36.7; O2SAT 96–98; BMI 42.1
[2024-11-06 14:15] LABS: Bilirubin Urine Negative (Negative); Blood Urine Negative (Negative); Glucose Urine UA Negative (Normal); Ketones Urine Negative (Negative); Leukocyte Esterase Urine Negative (Negative); Nitrate Urine Negative (Negative); Protein Urine Negative (Negative); Specific Gravity, Urine 1.025 (1.005-1.030); Urine Appearance Cloudy (CLEAR); Urine Color Yellow (Yellow)
[2024-11-06 14:18] LABS: Add Urine Microscopic? YES; Bacteria Urine 1+ /hpf; Hyaline Casts Urine 0.81 /lpf; RBC Urine 0-2 /hpf (0-2); WBC Urine 0-5 /hpf (0-5)
[2024-11-06 14:23] LABS: Basophils % 0.3 %; Eosinophils # 0.2 10^3/uL (0.0-0.8); Eosinophils % 2.3 %; Hematocrit 45.7 % (36-47); Lymphocytes # 1.5 10^3/uL (0.8-4.8); Lymphocytes % 15.4 %; Mean Corpuscular HGB Conc 32.6 g/dL (30-55); Mean Corpuscular Hemoglobin 31.1 pg (27-33); Mean Corpuscular Volume 95.4 fl (85-98); Mean Platelet Volume 11.9 fL (7.4-10.4); Monocytes # 0.8 10^3/uL (0.2-0.9); Monocytes % 8.7 %; Neutrophils # 7.02 10^3/uL (1.8-7.7); Neutrophils % 72.9 %; Nucleated Red Blood Cells % 0 %; Platelet Count 319 10^3/cmm (157-399); Red Blood Count 4.79 10^6/uL (3.85-5.65); Red Cell Distribution Width 13.2 % (12.1-15.1); White Blood Count 9.63 10^3/uL (3.29-11.43)
[2024-11-06 14:37] LABS: HCG, Serum Qual Negative (Negative)
[2024-11-06 14:43] LABS: Alanine Aminotransferase 13 U/L (0-33); Albumin Level 3.8 g/dL (3.5-5.2); Alkaline Phosphatase 105 U/L (35-105); Anion Gap 15.2 (5-19); Aspartate Amino Transferase 15 U/L (0-32); Blood Urea Nitrogen 10 mg/dL (6-20); Calcium 8.8 mg/dL (8.5-10.5); Carbon Dioxide 24 mmol/L (22-29); Chloride 104 mmol/L (98-107); Creatinine Clr Calc Pharmacy 133.4984; Globulin 2.8 g/dL (1.3-4.6); Glomerular Filtration Rate 76.9 mL/min (90-130); Glucose 202 mg/dL (65-115); Lipase 62 U/L (13-60); Osmolality Calculated 293 mOsm/kg (285-295); Potassium 4.2 mmol/L (3.5-5.1); Sodium 139 mmol/L (136-145); Total Bilirubin 0.2 mg/dL (0.15-1.2); Total Protein 6.6 g/dL (6.6-8.7)
--- NOTE | 2024-11-06 15:12 | CTR_ITS ---
PROCEDURE INFORMATION: Exam: CT Abdomen And Pelvis With Contrast Exam date and time: 11/06/2024 3:23 PM Age: 49 years old Clinical indication: Abdominal pain; Flank; Right; Prior surgery; Surgery date: 6+ months; Surgery type: Tubal; Ovarian and cervical with chemo and radiation; Additional info: Abd pain TECHNIQUE: Imaging protocol: Computed tomography of the abdomen and pelvis with contrast. Axial, coronal and sagittal reformatted images were created and reviewed. Radiation optimization: All CT scans at this facility use at least one of these dose optimization techniques: automated exposure control; mA and/or kV adjustment per patient size (includes targeted exams where dose is matched to clinical indication); or iterative reconstruction. Contrast material: OMNI 350; Contrast volume: 100 ml; Contrast route: INTRAVENOUS (IV); COMPARISON: CT chest abdpel w/*[id number] 05/11/2023 5:08 PM RADIATION DOSE METRICS: Total DLP (mGy-cm): 1214.6 FINDINGS: Lungs: Left lower lobe calcified granuloma. Diaphragm: Small hiatal hernia. Liver: Mild hepatomegaly. Diffuse hepatic steatosis. Gallbladder and biliary ducts: Cholelithiasis. Pancreas: Unremarkable. Spleen: Unremarkable. Adrenal glands: Hypodense julm-ukmnkne-hpbq-right adrenal thickening, similar to prior and likely secondary to benign hyperplasia. Kidneys and ureters: No mass. No radiodense calculi. No hydronephrosis. Stomach and bowel: No bowel wall thickening. No obstruction. No pneumatosis. Appendix: Normal. Intraperitoneal space: No free fluid. No organized fluid collection. No free air. Vasculature: Mild atherosclerotic disease. No aneurysm or dissection. Lymph nodes: No pathologically enlarged lymph nodes. Urinary bladder: Unremarkable as visualized. Reproductive: Unremarkable. Bones/joints: No acute osseous abnormality. Osteopenia. Mild degenerative changes. Bilateral L5 pars defects with grade 1 anterolisthesis of L5 on S1. Avascular necrosis of the femoral heads. Soft tissues: Unremarkable. CT/CT abdomen pelvis w con* [id number] IM[address]ION: 1. No CT evidence of acute intra-abdominal or pelvic pathology. 2. Additional findings, as above.
--- NOTE | 2024-11-06 15:16 | W.ED.ABDPA2 ---
HPI - Abdominal Pain General: Chief Complaint: Abdominal Pain Stated Complaint: chest conjestion/pain Time Seen by Provider: 11/06/24 14:33 Source: patient Mode of arrival: ambulatory Limitations: no limitations History of Present Illness: 49-year-old female who states that she has been having right upper quadrant abdominal pain has been going on for the last 3 days. States the pain radiates to her back as well she denies any worse improved factors she denies any fever she said some nausea denies any vomiting she denies any increased pain with eating. Rates the pain a 7 out of 10 currently Associated Symptoms: Reports nausea; Denies chills, diarrhea, fever(s) and vomiting Related Data Home Medications Medication Instructions Recorded Confirmed potassium gluconate 595 mg (99 mg) 595 mg PO QPM 04/15/20 11/06/24 tablet cetirizine 10 mg tablet (Zyrtec) 10 mg PO DAILY PRN Allergic 11/24/22 11/06/24 Symptoms trazodone 150 mg tablet 150 mg PO BEDTIME 06/27/23 11/06/24 glimepiride 1 mg tablet 1 mg PO DAILY 04/08/24 11/06/24 hydrocodone 5 mg-acetaminophen 325 1 tab PO BID PRN Pain 04/08/24 11/06/24 mg tablet methocarbamol 750 mg tablet 750 mg PO TID PRN Pain 04/08/24 11/06/24 rosuvastatin 20 mg tablet 20 mg PO DAILY 04/08/24 11/06/24 topiramate 25 mg tablet 25 mg PO BID 08/12/24 11/06/24 dulaglutide 3 mg/0.5 mL 3 mg SUBCUT Q7D 11/06/24 11/06/24 subcutaneous pen injector (Trulicity) metoprolol succinate 100 mg 100 mg PO BID 11/06/24 11/06/24 tablet,extended release 24 hr Previous Rx's Medication Instructions Recorded sulfasalazine 500 mg tablet 1 g (2 x 500 mg) PO BID #120 tabs 08/12/24 hydroxychloroquine 200 mg tablet 200 mg PO BID #60 tabs 08/27/24 celecoxib 200 mg capsule (Celebrex) 200 mg PO BID PRN pain #60 caps 10/09/24 hydrocodone 5 mg-acetaminophen 325 1 tab PO Q6H PRN pain #14 tabs 11/06/24 mg tablet ondansetron 4 mg disintegrating 4 mg PO Q6H PRN nausea and 11/06/24 tablet vomiting #14 tabs Allergies Allergy/AdvReac Type Severity Reaction Status Date / Time leflunomide Allergy Unknown ADR-Nausea Verified 06/19/24 09:04 Review of Systems Const: Denies: fever(s), chills, body aches or change in appetite ENMT: Denies: throat pain or dental pain Card: Denies: chest pain Resp: Denies: dyspnea GI: Reports: abdominal pain and nausea; Denies: vomiting or diarrhea Musc: Denies: neck pain or back pain Skin/Breast: Denies: rash Neuro: Denies: headache(s) PFSH ED PFSH: Medical History Immunization counseling High risk medication use Inflammatory arthritis Nicotine dependence, cigarettes, uncomplicated Generalized anxiety disorder Borderline personality disorder Post-traumatic stress disorder, chronic Social History Smoking and tobacco/nicotine status: current every day tobacco/nicotine user (vape) e-cigarettes E-cig/vape details: vapes Quit status (tobacco/nicotine): has quit using Former quit date comment: Vapes now Alcohol intake: unknown Current gender identity: Female Physical Exam Const: COMMON NORMALS: no acute distress, patient oriented x3 and healthy appearing HENMT: COMMON NORMALS: normocephalic and atraumatic HEAD & SCALP: normocephalic and atraumatic Eye: COMMON NORMALS: conjunctivae normal CONJUNCTIVA: Yes conjunctivae normal Neck/C-Spine: COMMON NORMALS: full ROM and supple Chest: COMMONS NORMALS: normal inspection of the chest Resp: COMMON NORMALS: normal respiratory effort, No retractions, No use of accessory muscles and clear to auscultation bilaterally AUSCULTATION: clear to auscultation bilaterally Cardio: COMMON NORMALS: regular rate, regular rhythm and No murmurs present (Cardio) RATE: regular rate RHYTHM: regular rhythm GI: COMMON NORMALS: Normal to inspection, nondistended, normoactive bowel sounds present, Soft to palpation and no masses PALPATION: Yes Soft to palpation and Yes Tenderness to palpation present (GI) Details: RUQ Extremity: COMMON NORMALS: normal to inspection and full ROM Neuro: COMMON NORMALS: patient oriented x3, moves all extremities and no focal motor deficits Psych: COMMON NORMALS: mental status grossly normal, Normal thought process present and cooperative THOUGHT PROCESS: Normal thought process present Skin: COMMON NORMALS: no rashes or lesions noted and no wounds GENERAL SKIN EXAM: no rashes or lesions noted Course Vital Signs: Vital signs: Vital Signs Temperature 98.1 F 11/06/24 13:40 Pulse Rate 80 11/06/24 16:50 Respiratory Rate 18 11/06/24 15:19 Blood Pressure 118/83 11/06/24 16:50 Pulse Oximetry 96 11/06/24 16:50 Oxygen Delivery Me thod Room Air 11/06/24 13:40 MDM - Abdominal Pain Medical Decision Making Patient presents here with abdominal pain CT scan shows gallstones no signs of cholecystitis blood works normal as well her pain is much improved exam at discharge is benign she is stable for discharge we will get her surgery follow-up she is to return if worsening she understands agrees to plan Medical Records I reviewed the patient's medical records. Lab Data I reviewed the patient's lab results. 11/06/24 14:06 11/06/24 14:06 Labs/Radiology: Radiology Impressions Abdomen/Pelvis CT 11/06/24 15:[address]: 1[address] evidence of acute intra-abdominal or pelvic pathology. 2. Additional findings, as above. Laboratory Results WBC 9.63 10^3/uL (3.29-11.43) 11/06/24 14:06 RBC 4.79 10^6/uL (3.85-5.65) 11/06/24 14:06 Hgb 14.90 g/dL (11.27-16.99) 11/06/24 14:06 Hct 45.7 % (36-47) 11/06/24 14:06 MCV 95.4 fl (85-98) 11/06/24 14:06 MCH 31.1 pg (27-33) 11/06/24 14:06 MCHC 32.6 g/dL (30-55) 11/06/24 14:06 RDW 13.2 % (12.1-15.1) 11/06/24 14:06 Plt Count 319 10^3/cmm (157-399) 11/06/24 14:06 MPV 11.9 fL (7.4-10.4) H 11/06/24 14:06 Neut % (Auto) 72.9 % 11/06/24 14:06 Lymph % (Auto) 15.4 % 11/06/24 14:06 [place] % (Auto) 8.7 % 11/06/24 14:06 Eos % (Auto) 2.3 % 11/06/24 14:06 Baso % (Auto) 0.3 % 11/06/24 14:06 Neut # (Auto) 7.02 10^3/uL (1.8-7.7) 11/06/24 14:06 Lymph # (Auto) 1.5 10^3/uL (0.8-4.8) 11/06/24 14:06 [place] # (Auto) 0.8 10^3/uL (0.2-0.9) 11/06/24 14:06 Eos # (Auto) 0.2 10^3/uL (0.0-0.8) 11/06/24 14:06 Baso # (Auto) 0.0 10^3/uL (0.0-0.1) 11/06/24 14:06 Nucleated RBC % (auto) 0 % 11/06/24 14:06 Nucleated RBCs # 0.0 /100WBC 11/06/24 14:06 Sodium 139 mmol/L (136-145) 11/06/24 14:06 Potassium 4.2 mmol/L (3.5-5.1) 11/06/24 14:06 Chloride 104 mmol/L (98-107) 11/06/24 14:06 Carbon Dioxide 24 mmol/L (22-29) 11/06/24 14:06 Anion Gap 15.2 (5-19) 11/06/24 14:06 BUN 10 mg/dL (6-20) 11/06/24 14:06 Creatinine 0.8 mg/dL (0.5-0.9) 11/06/24 14:06 GFR Calculation 76.9 mL/min (90-130) L 11/06/24 14:06 Glucose 202 mg/dL (65-115) H 11/06/24 14:06 Calculated Osmolality 293 mOsm/kg (285-295) 11/06/24 14:06 Calcium 8.8 mg/dL (8.5-10.5) 11/06/24 14:06 Total Bilirubin 0.2 mg/dL (0.15-1.2) 11/06/24 14:06 AST 15 U/L (0-32) 11/06/24 14:06 ALT 13 U/L (0-33) 11/06/24 14:06 Alkaline Phosphatase 105 U/L (35-105) 11/06/24 14:06 Total Protein 6.6 g/dL (6.6-8.7) 11/06/24 14:06 Albumin 3.8 g/dL (3.5-5.2) 11/06/24 14:06 Globulin 2.8 g/dL (1.3-4.6) 11/06/24 14:06 Lipase 62 U/L (13-60) H 11/06/24 14:06 HCG, Qual Negative (Negative) 11/06/24 14:06 Urine Color Yellow (Yellow) 11/06/24 14:02 Urine Appearance Cloudy (CLEAR) A 11/06/24 14:02 Urine pH 6.0 (5-7) 11/06/24 14:02 Ur Specific [place] 1.025 (1.005-1.030) 11/06/24 14:02 Urine Protein Negative (Negative) 11/06/24 14:02 Urine Glucose (UA) Negative (Normal) 11/06/24 14:02 Urine Ketones Negative (Negative) 11/06/24 14:02 Urine Blood Negative (Negative) 11/06/24 14:02 Urine Nitrate Negative (Negative) 11/06/24 14:02 Urine Bilirubin Negative (Negative) 11/06/24 14:02 Urine Urobilinogen 1.0 mg/dL (Negative) 11/06/24 14:02 Ur Leukocyte Esterase Negative (Negative) 11/06/24 14:02 Urine RBC 0-2 /hpf (0-2) 11/06/24 14:02 Urine WBC 0-5 /hpf (0-5) 11/06/24 14:02 Ur Squamous Epith Cells 11-20 /hpf (0-5) H 11/06/24 14:02 Amorphous Sediment Not Reportable 11/06/24 14:02 Urine Bacteria 1+ /hpf (NONE) H 11/06/24 14:02 Hyaline Casts 0.81 /lpf 11/06/24 14:02 All radiology interpretation(s) finalized by discharge Discharge Plan Discharge Patient Disposition: Home Clinical Impression: Abdominal pain, Cholelithiasis Condition: Stable Prescriptions: New hydrocodone-acetaminophen 5-325 mg tablet 1 tab PO Q6H PRN (Reason: pain) Qty: 14 0RF ondansetron 4 mg tablet,disintegrating 4 mg PO Q6H PRN (Reason: nausea and vomiting) Qty: 14 0RF No Action glimepiride 1 mg tablet 1 mg PO DAILY methocarbamol 750 mg tablet 750 mg PO TID PRN (Reason: Pain) rosuvastatin 20 mg tablet 20 mg PO DAILY hydrocodone-acetaminophen 5-325 mg tablet 1 tab PO BID PRN (Reason: Pain) topiramate 25 mg tablet 25 mg PO BID sulfasalazine 500 mg tablet 1 g PO BID Qty: 120 4RF Rx Instructions: Take 1tab twice a day for 1wk then stay on 2tabs twice a day. give with food (meal/snack) cetirizine [Zyrtec] 10 mg tablet 10 mg PO DAILY PRN (Reason: Allergic Symptoms) trazodone 150 mg tablet 150 mg PO BEDTIME hydroxychloroquine 200 mg tablet 200 mg PO BID Qty: 60 4RF celecoxib [Celebrex] 200 mg capsule 200 mg PO BID PRN (Reason: pain) Qty: 60 1RF potassium gluconate 595 mg (99 mg) Tablet 595 mg PO QPM metoprolol succinate 100 mg tablet extended release 24 hr 100 mg PO BID Trulicity 3 mg/0.5 mL pen injector 3 mg SUBCUT Q7D Discharge Orders: Discharge ED (Routine); Ordered 11/06/24 Ordered By: Kaylynn Bermudez Referrals: Iraj Mcgregor MD [Physician] - 4-7 days Jeovanny Thao FNP [Primary Care Provider] - Discharge Diet: Advance as tolerated Discharge Activity: Resume usual activity Patient Instructions: Biliary Colic (ED), Abdominal Pain (ED), Opioid Safety Coding 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
[2024-11-06] MEDS: morphine 4 mg/mL SDV 1 mL IVP (15:19)
[2024-11-06] MEDS: ondansetron 2 mg/ML SDV 2 mL 4 MG IVP (15:20)
[2024-11-06] MEDS: iohexol 350 mg/mL 500 mL Btl (per mL) IV (15:28)
== END 2024-11-06 16:54 | disposition home or self-care (01) ==
PROVIDERS: Physician Assistant; Emergency Provider Emergency Medicine; PCP Nurse Practitioner
DX: K80.20 Calculus of gallbladder without cholecystitis without obstruction (principal); F17.290 Nicotine dependence, other tobacco product, uncomplicated
CPT/HCPCS: 36415; 74177; 80053; 81001; 83690; 84703; 85025; 96374; 96375; 99285; J2270; J2405

== ENCOUNTER → 2024-11-10 08:04 | Outpatient (BNVA) | payer MEDICAID, SELFPAY | PROVIDERS: PCP Nurse Practitioner; Visit Provider Surgery | DX: K80.20 Calculus of gallbladder without cholecystitis without obstruction (principal); K21.9 Gastro-esophageal reflux disease without esophagitis; Z12.11 Encounter for screening for malignant neoplasm of colon | CPT/HCPCS: 99204 ==

== ENCOUNTER 2024-11-18 06:23 | Day surgery (SDC) | payer MEDICAID, SELFPAY ==
[2024-11-18] VITALS (25 sets, daily range): BP systolic 120–205; BP diastolic 91–154; PULSE 66–84; RESP 16–19; TEMP 36.1–36.4; O2SAT 95–99; BMI 42.1
[2024-11-18] MEDS: sodium chloride 0.9% 1,000 ML 30 ML IV (06:50)
[2024-11-18 06:59] LABS: Glucose Point of Care 124 mg/dL (70-110)
--- NOTE | 2024-11-18 07:45 | W.PM.OPSUD ---
Surgery/Procedure H&P Update DATE OF PROCEDURE: November 18, 2024 DATE H&P PERFORMED: 11/10/24 H&P UPDATE INFORMATION: I have reviewed H&P completed within last 30 days, I have examined patient prior to procedure and No changes to prior documentation PLANNED PROCEDURE: Operation Date: 11/18/24 08:05 Proposed Procedures p Laparoscopic Cholecystectomy 95546, K80.20(Not Applicable) - Nicolas Balderrama, DO
[2024-11-18] MEDS: ceFAZolin 3,000 MG in sodium chloride 0.9% (plus) 100 ML 200 MG IV (08:00)
--- NOTE | 2024-11-18 08:06 | ANES.PREANE2 ---
Pre-Anesthetic Assessment Height/Weight: Height 5 ft 11 in Weight 302 lb Temp Pulse Resp BP Pulse Ox O2 Del Method 97.5 F L 74 19 H 120/93 95 Room Air 11/18/24 06:43 11/18/24 06:43 11/18/24 06:43 11/18/24 06:43 11/18/24 06:43 11/18/24 06:43 Preop Diagnosis: Symptomatic cholelithiasis Operation Date: 11/18/24 08:05 Proposed Procedures p Laparoscopic Cholecystectomy 99366, K80.20(Not Applicable) - Nicolas Balderrama, DO Was Beta Sharri taken within 24 hours: Yes Was Clonidine taken within 24 hours: N/A Last intake: Intake Last Liquid Date 11/17/24 Last Liquid Time 20:30 Last Solid Date 11/17/24 Last Solid Time 20:30 Social Tobacco and No alcohol Exam alert, oriented x 3, clear to auscultation bilaterally and regular rate & rhythm Airway Submandibular: within normal limits Cervical ROM: within normal limits Mallampati: Class III Comments: Comments: Edentulous Anesthetic Plan ASA status: 3 Anesthesia: General Other: Patient reports no prior issues with anesthesia NPO since yesterday evening History of diabetes, on Trulicity. 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 BS today 120 Plan for GETA Medications/Allergies Home Medications ?Medication ?Instructions ?Recorded ?Confirmed ?Last Taken ?Type potassium gluconate 595 mg (99 mg) 595 mg PO QPM 04/15/20 11/17/24 11/16/24 History tablet trazodone 150 mg tablet 150 mg PO BEDTIME 06/27/23 11/17/24 11/17/24 History glimepiride 1 mg tablet 1 mg PO DAILY 04/08/24 11/17/24 11/17/24 History hydrocodone 5 mg-acetaminophen 325 1 tab PO BID PRN Pain 04/08/24 11/17/24 11/17/24 History mg tablet methocarbamol 750 mg tablet 750 mg PO TID PRN Pain 04/08/24 11/17/24 11/17/24 History rosuvastatin 20 mg tablet 20 mg PO DAILY 04/08/24 11/17/2411/17/25 History hydroxychloroquine 200 mg tablet 200 mg PO BID #60 tabs 08/27/24 11/17/24 11/17/24 Rx celecoxib 200 mg capsule (Celebrex) 200 mg PO BID PRN pain #60 caps 10/09/24 11/17/24 11/17/24 Rx dulaglutide 3 mg/0.5 mL 3 mg SUBCUT Q7D 11/06/24 11/17/24 11/07/24 History subcutaneous pen injector (Trulicity) metoprolol succinate 100 mg 100 mg PO BID 11/06/24 11/17/24 11/17/24 History tablet,extended release 24 hr ondansetron 4 mg disintegrating 4 mg PO Q6H PRN nausea and 11/06/24 11/17/24 Unknown Rx tablet vomiting #14 tabs amoxicillin 875 mg-potassium 1 tab PO BID 10 days #20 tabs 11/10/24 11/17/24 11/17/24 Rx clavulanate 125 mg tablet pantoprazole 40 mg tablet,delayed 40 mg PO BID 6 weeks #84 tabs 11/10/24 11/17/24 11/17/24 Rx release (Protonix) Allergies Allergy/AdvReac Type Severity Reaction Status Date / Time leflunomide Allergy Unknown ADR-Nausea Verified 11/10/24 08:11 [facility] Anesthesia Medical History (Updated 11/14/24 @ 00:01 by MIKE Bates) Seronegative rheumatoid arthritis Immunization counseling High risk medication use Inflammatory arthritis Nicotine dependence, cigarettes, uncomplicated Generalized anxiety disorder Borderline personality disorder Post-traumatic stress disorder, chronic Social History Smoking and tobacco/nicotine status: current every day tobacco/nicotine user (vape) e-cigarettes E-cig/vape details: vapes Quit status (tobacco/nicotine): has quit using Former quit date comment: Vapes now Alcohol intake: unknown Current gender identity: Female Data Anesthesia Cardiac Studies: No Data to Display
[2024-11-18] MEDS: lidocaine-epi 2% PF 1:200,000 20 mL SDV XX (08:41)
--- NOTE | 2024-11-18 09:00 | P.OP_ITS ---
Operative Report Date of procedure: November 18, 2024 Surgeon: Nicolas Balderrama DO Brief History: This is a very pleasant 49-year-old female presented my office with abdominal pain. She is diagnosed with symptomatic cholelithiasis. Laparoscopic cholecystectomy is indicated. The risks and benefits were explained and documented. Procedure: Preoperative diagnosis: Symptomatic cholelithiasis Postoperative diagnosis: Same Procedure performed: Laparoscopic cholecystectomy Surgeon: Dr. Nicolas Balderrama DO Estimated blood loss: 5 mL Specimens: Gallbladder to pathology Complications: None apparent Description of procedure: Patient was wheeled into the operative room and placed on the OR table in a supine position. Abdomen was inspected prepped and draped in usual sterile fas hion. Time-out was performed and all present were in agreement. A 15 blade scalp was used to make a stab incision in the left upper quadrant and intra- abdominal insufflation was achieved using a Veress needle. After localizing the tissue incisions were made and a 5 millimeter trocar was placed into the umbilicus as well as 2 in the right upper quadrant. A 12 millimeter trocar was placed in the epigastrium. Gallbladder was grasped and elevated. The triangle of Calot was carefully dissected using blunt dissection and electrocautery until the triangle of Calot clearly identified. The cystic duct was clipped proximally and double clipped distally. The duct was then ligated proximally. The cystic artery was doubly clipped and ligated. The gallbladder was then removed from the liver bed using electrocautery. The gallbladder was removed from the abdomen using an Endo-Catch bag through the epigastric incision. The liver bed was inspected and no bleeding was seen. The abdomen was irrigated and suctioned. All ports removed. Skin was washed and dried. Incisions were closed with 4-0 Monocryl in a subcuticular interrupted fashion. Skin glue was applied. Patient tolerated the procedure well.
[2024-11-18] MEDS: labetalol 5 mg/mL SDV 20mL 100 MG (09:58)
[2024-11-18] MEDS: ondansetron 2 mg/ML SDV 2 mL 4 MG IVP (09:58)
[2024-11-18] MEDS: fentaNYL 50 mcg/mL INJ 2mL IVP (09:59)
[2024-11-18] MEDS: metoclopramide 5 mg/mL SDV 2 mL 10 MG IVP (11:30)
--- NOTE | 2024-11-18 11:55 | ANE.PACU2 ---
Inpatient post-anesthesia follow up: Airway intact: Yes Vital signs: Temperature 97.0 F Pulse Rate 84 Respiratory Rate 17 Blood Pressure 155/108 Pulse Oximetry 96 Oxygen Delivery Me thod Room Air Oxygen Flow Rate 2 Fraction of Inspir ed Oxygen Hydration adequate: Yes Nausea and vomiting: Yes (treated and doing much better prior to discharge) Pain level: 1 Mental status: Baseline
== END 2024-11-18 11:55 | disposition home or self-care (01) ==
PROVIDERS: PCP Family Medicine; Visit Provider Surgery
PROC: 0FT44ZZ Resection of Gallbladder, Percutaneous Endoscopic Approach (ICD-10-PCS; CPT 47562; principal; 2024-11-18 07:55)
DX: K80.10 Calculus of gallbladder with chronic cholecystitis without obstruction (principal); K21.9 Gastro-esophageal reflux disease without esophagitis; E11.9 Type 2 diabetes mellitus without complications; G47.33 Obstructive sleep apnea (adult) (pediatric); Z79.899 Other long term (current) drug therapy; Z79.85 Long-term (current) use of injectable non-insulin antidiabetic drugs; Z88.8 Allergy status to other drugs, medicaments and biological substances; M06.00 Rheumatoid arthritis without rheumatoid factor, unspecified site; F17.290 Nicotine dependence, other tobacco product, uncomplicated
CPT/HCPCS: 47562; 36416; 82962; 88304; A4216; J0690; J1100; J2250; J2405; J2704; J2765; J3010; J3490; J7030

== ENCOUNTER → 2024-12-01 08:09 | Outpatient (BNVA) | payer MEDICAID, SELFPAY | PROVIDERS: PCP Family Medicine; Visit Provider Surgery | DX: B37.9 Candidiasis, unspecified (principal) | CPT/HCPCS: 99214 ==

== ENCOUNTER 2024-12-03 06:14 | Day surgery (SDC) | payer MEDICAID, SELFPAY ==
[2024-12-03 06:31] VITALS: BP 106/71; PULSE 80; RESP 18; TEMP 36.2; O2SAT 94; BMI 41.7
[2024-12-03] MEDS: sodium chloride 0.9% 500 ML 15 ML IV (06:47)
--- NOTE | 2024-12-03 06:55 | ANES.PREANE2 ---
Pre-Anesthetic Assessment Height/Weight: Height 1.8 m Weight 135.624 kg Temp Pulse Resp BP Pulse Ox O2 Del Method 97.1 F L 80 18 106/71 94 Room Air 12/03/24 06:31 12/03/24 06:31 12/03/24 06:31 12/03/24 06:31 12/03/24 06:31 12/03/24 06:31 Preop Diagnosis: screening Operation Date: 12/03/24 07:30 Proposed Procedures p EGD 30346, 29712, G0121, K21.9, Z12.11(Not Applicable) - Nicolas Balderrama DO s Colonoscopy(Not Applicable) - Nicolas Balderrama DO Familial anesthetic complications: none Was Beta Sharri taken within 24 hours: Yes Was Clonidine taken within 24 hours: N/A Last intake: Intake Last Liquid Date 12/02/24 Last Liquid Time 21:00 Last Solid Date 12/01/24 Last Solid Time 20:00 Social Tobacco and No alcohol Vapes Exam alert, oriented x 3, clear to auscultation bilaterally and regular rate & rhythm Airway Submandibular: within normal limits Cervical ROM: within normal limits Mallampati: Class II Dentition: false History/ROS No significant history except as noted and No significant complaints Pulmonary Exertional Dyspnea, Sleep Apnea and Shortness of Breath CV/HEM Hypertension None reported Hepatic None reported GI Gastroesophageal Reflux Disease Metabolic Diabetes Mellitus and Morbid Obesity [facility] None reported Neuropsych no deficit Anesthetic Plan ASA status: 3 Anesthesia: MAC Risk of > 500 ml blood loss (7ml/kg in children): No Medications/Allergies Home Medications ?Medication ?Instructions ?Recorded ?Confirmed ?Last Taken ?Type trazodone 150 mg tablet 150 mg PO BEDTIME 06/27/23 12/03/24 12/02/24 History Held on 11/18/24. Instructions: Resume on 11/19/24. glimepiride 1 mg tablet 1 mg PO DAILY 04/08/24 12/03/24 12/02/24 History hydrocodone 5 mg-acetaminophen 325 1 tab PO BID PRN Pain 04/08/24 12/03/24 12/02/24 History mg tablet Held on 11/18/24. Instructions: Resume on 11/23/24. methocarbamol 750 mg tablet 750 mg PO TID PRN Pain 04/08/24 12/03/24 12/02/24 History rosuvastatin 20 mg tablet 20 mg PO DAILY 04/08/24 12/03/24 12/02/24 History hydroxychloroquine 200 mg tablet 200 mg PO BID #60 tabs 08/27/24 12/03/24 12/02/24 Rx celecoxib 200 mg capsule (Celebrex) 200 mg PO BID PRN pain #60 caps 10/09/24 12/03/24 12/02/24 Rx Held on 11/18/24. Instructions: Resume on 11/20/24. dulaglutide 3 mg/0.5 mL 3 mg SUBCUT Q7D 11/06/24 12/03/24 11/25/24 History subcutaneous pen injector (Trulicity) metoprolol succinate 100 mg 100 mg PO BID 11/06/24 12/03/24 12/03/24 History tablet,extended release 24 hr 0530 ondansetron 4 mg disintegrating 4 mg PO Q6H PRN nausea and 11/06/24 12/03/24 11/29/24 Rx tablet vomiting #14 tabs pantoprazole 40 mg tablet,delayed 40 mg PO BID 6 weeks #84 tabs 11/10/24 12/03/24 12/02/24 Rx release (Protonix) fluconazole 100 mg tablet 100 mg PO DAILY 3 days #3 tabs 12/01/24 12/03/24 12/02/24 Rx (Diflucan) Allergies Allergy/AdvReac Type Severity Reaction Status Date / Time leflunomide Allergy Unknown ADR-Nausea Verified 12/01/24 11:22 Current Medications Generic Name Dose Route Start Last Admin Trade Name Freq PRN Reason Stop Dose Admin Sodium Chloride 500 mls @ 15 mls/hr 12/03/24 06:22 12/03/24 06:47 Sodium Chloride 0.9% IV 12/04/24 06:21 15 mls/hr .Q24H PRN Administration COLONOSCOPY FLUIDS PFSH Anesthesia Medical History (Updated 12/01/24 @ 09:01 by Nicolas Balderrama DO) Seronegative rheumatoid arthritis Immunization counseling High risk medication use Inflammatory arthritis Nicotine dependence, cigarettes, uncomplicated Generalized anxiety disorder Borderline personality disorder Post-traumatic stress disorder, chronic Surgical History (Updated 12/01/24 @ 09:01 by Nicolas Balderrama DO) History of insertion of central venous access port Left chest History of tubal ligation History of wisdom tooth extraction History of laparoscopic cholecystectomy Social History Smoking and tobacco/nicotine status: never used tobacco/nicotine Quit status (tobacco/nicotine): has quit using Former quit date comment: Vapes now Alcohol intake: unknown Current gender identity: Female Data Anesthesia Cardiac Studies: No Data to Display
[2024-12-03 06:57] LABS: Glucose Point of Care 126 mg/dL (70-110)
--- NOTE | 2024-12-03 07:30 | W.PM.OPSUD ---
Surgery/Procedure H&P Update DATE OF PROCEDURE: December 03, 2024 DATE H&P PERFORMED: 11/10/24 H&P UPDATE INFORMATION: I have reviewed H&P completed within last 30 days, I have examined patient prior to procedure and No changes to prior documentation PREOP DIAGNOSIS: screening PLANNED PROCEDURE: Operation Date: 12/03/24 07:30 Proposed Procedures p EGD 84054, 31701, G0121, K21.9, Z12.11(Not Applicable) - DO nato Self Colonoscopy(Not Applicable) - Nicolas Balderrama DO
[2024-12-03 08:00] VITALS: BP 169/106; PULSE 81; RESP 16; TEMP 36.4; O2SAT 96
[2024-12-03 08:12] VITALS: BP 168/103; PULSE 73; RESP 16; O2SAT 95
[2024-12-03 08:22] VITALS: BP 176/96; PULSE 75; RESP 18; O2SAT 95
--- NOTE | 2024-12-03 08:35 | ANE.PACU2 ---
Inpatient post-anesthesia follow up: Airway intact: Yes Vital signs: Temperature 97.6 F Pulse Rate 75 Respiratory Rate 18 Blood Pressure 176/96 Pulse Oximetry 95 Oxygen Delivery Me thod Room Air Oxygen Flow Rate Fraction of Inspir ed Oxygen Hydration adequate: Yes Nausea and vomiting: No Pain level: 1 Mental status: Baseline
[2024-12-03 09:24] LABS: C.Diff PCR (Lab) NEGATIVE (Negative)
== END 2024-12-03 08:35 | disposition home or self-care (01) ==
PROVIDERS: PCP Family Medicine; Visit Provider Surgery
PROC: 0DJ08ZZ Inspection of Upper Intestinal Tract, Via Natural or Artificial Opening Endoscopic (ICD-10-PCS; principal; 2024-12-03 07:30)
PROC: 0DJD8ZZ Inspection of Lower Intestinal Tract, Via Natural or Artificial Opening Endoscopic (ICD-10-PCS; CPT 45378; 2024-12-03 07:30)
DX: Z12.11 Encounter for screening for malignant neoplasm of colon (principal); K64.8 Other hemorrhoids; K52.9 Noninfective gastroenteritis and colitis, unspecified; K57.30 Diverticulosis of large intestine without perforation or abscess without bleeding; K44.9 Diaphragmatic hernia without obstruction or gangrene; K21.9 Gastro-esophageal reflux disease without esophagitis; E11.9 Type 2 diabetes mellitus without complications; E66.01 Morbid (severe) obesity due to excess calories; Z68.41 Body mass index [BMI] 40.0-44.9, adult; Z79.899 Other long term (current) drug therapy; Z79.85 Long-term (current) use of injectable non-insulin antidiabetic drugs; Z88.8 Allergy status to other drugs, medicaments and biological substances; F17.290 Nicotine dependence, other tobacco product, uncomplicated; Z90.49 Acquired absence of other specified parts of digestive tract; M06.00 Rheumatoid arthritis without rheumatoid factor, unspecified site; F41.1 Generalized anxiety disorder; K29.50 Unspecified chronic gastritis without bleeding; K63.5 Polyp of colon
CPT/HCPCS: 36416; 43239; 45380; 45385; 82274; 82962; 83630; 87045; 87177; 87209; 87427; 87449; 87493; 88305; 88342; J2704; J3490; J7040

== ENCOUNTER → 2024-12-16 13:28 | Outpatient (BNVA) | payer MEDICAID, SELFPAY | PROVIDERS: PCP Family Medicine; Visit Provider Internal Medicine Rheumatology | DX: M19.90 Unspecified osteoarthritis, unspecified site (principal); Z79.899 Other long term (current) drug therapy; Z71.85 Encounter for immunization safety counseling | CPT/HCPCS: 36415; 72100; 72202; 80076; 82565; 83520; 85025; 85651; 86140; 99214 ==

== ENCOUNTER → 2024-12-25 09:18 | Outpatient (BNVA) | payer MEDICAID, SELFPAY | PROVIDERS: PCP Family Medicine; Visit Provider Student in an Organized Health Care Education/Training Program | DX: Z09 Encounter for follow-up examination after completed treatment for conditions other than malignant neoplasm (principal) | CPT/HCPCS: 99214 ==

== ENCOUNTER → 2025-03-19 09:33 | Outpatient (BNVA) | payer MEDICAID, SELFPAY | PROVIDERS: PCP Family Medicine; Visit Provider Internal Medicine Rheumatology | DX: M19.90 Unspecified osteoarthritis, unspecified site (principal); Z79.899 Other long term (current) drug therapy; Z71.85 Encounter for immunization safety counseling | CPT/HCPCS: 36415; 80076; 82565; 85025; 85651; 86140; 99214 ==

== ENCOUNTER 2025-03-24 12:54 | Outpatient (CLI) | payer MEDICAID, SELFPAY ==
--- NOTE | 2025-03-24 13:04 | MR_ITS ---
WS: [id number] MRI LEFT KNEE HISTORY: L KNEE PAIN COMPARISON: Radiograph 02/25/2025 Anterior cruciate ligament: Mucoid degeneration within the ACL. Posterior cruciate ligament: Intact. Medial collateral ligament: Ossification along the medial femoral condyle at the insertion of the MCL. Small amount of associated edema in the soft tissues. Posterior lateral corner structures: Intact. Medial menisci: Abnormal signal and contour posterior horn of the medial meniscus. This signal abnormality with blunting is in the peripheral third of the meniscus extending to the superior articular surface. Anterior horn is mildly subluxed from the joint space. Lateral meniscus: Intact. Normal signal, size and shape. Extensor mechanism: Distal quadriceps tendon and patellar tendons are intact. Fluid and soft tissue: Small suprapatellar joint effusion. Moderate-sized Molina's cyst. Osseous and articular structures: Patellofemoral compartment: Very slight lateral subluxation. No marrow edema. Mild superficial thinning of the cartilage. Slightly deeper cartilage defect along the medial patellar facet. Medial compartment: Mild narrowing the medial compartment. Small marginal osteophytes. Mild chondromalacia. Lateral compartment: Mild narrowing of the lateral compartment. No marrow edema. Osteophytes associated with the tibial spines. MR/MR knee LT wo con* [id number] IMPRESSION: 1. Ossification involving the cortical surface medial femoral condyle at the s ite of the MCL attachment consistent with a prior MCL avulsion tear. No acute t ear. 2. Abnormal signal and contour posterior horn medial meniscus. Signal abnormal ity in the peripheral third of the meniscus suspicious for tear. 3. Small suprapatellar joint effusion and moderate-sized Molina's cyst. 4. Mild tricompartment joint space narrowing with mild chondromalacia.
== END 2025-03-24 12:55 | disposition home or self-care (01) ==
LOC: RAD 12:55
PROVIDERS: PCP Family Medicine; Visit Provider Family Medicine
DX: M94.262 Chondromalacia, left knee (principal); M25.462 Effusion, left knee; M71.22 Synovial cyst of popliteal space [Baker], left knee
CPT/HCPCS: 73721

== ENCOUNTER → 2025-04-07 09:42 | Outpatient (BNVA) | payer MEDICAID, SELFPAY | PROVIDERS: PCP Family Medicine; Visit Provider Student in an Organized Health Care Education/Training Program | DX: M25.562 Pain in left knee (principal); M17.12 Unilateral primary osteoarthritis, left knee; S83.242A Other tear of medial meniscus, current injury, left knee, initial encounter; X58.XXXA Exposure to other specified factors, initial encounter | CPT/HCPCS: 20610; 73560; 73565; 99204; J3301; J9999 ==

== ENCOUNTER → 2025-07-07 10:52 | Outpatient (BNVA) | payer MEDICAID, SELFPAY | PROVIDERS: PCP Family Medicine; Visit Provider Internal Medicine Rheumatology | DX: M06.00 Rheumatoid arthritis without rheumatoid factor, unspecified site (principal); Z79.899 Other long term (current) drug therapy; Z71.85 Encounter for immunization safety counseling; E11.9 Type 2 diabetes mellitus without complications; Z79.1 Long term (current) use of non-steroidal anti-inflammatories (NSAID) | CPT/HCPCS: 36415; 80076; 82306; 82565; 82657; 83036; 85025; 85651; 86140; 99214 ==

== ENCOUNTER → 2025-08-11 10:33 | Outpatient (BNVA) | payer MEDICAID, SELFPAY | PROVIDERS: PCP Family Medicine; Visit Provider Student in an Organized Health Care Education/Training Program | DX: S83.242A Other tear of medial meniscus, current injury, left knee, initial encounter (principal); X58.XXXA Exposure to other specified factors, initial encounter; M17.12 Unilateral primary osteoarthritis, left knee | CPT/HCPCS: 20610; 99213; J3301; J9999 ==